=== PATIENT | female | born 1970 | race Caucasian/White ===

== ENCOUNTER 2016-09-12 00:14 | Emergency (ER) | payer BC ==
--- NOTE | 2016-09-12 02:09 | ED MAR SUMMARY ---
..... Medication Administration Record [facility] [address] [place], [place] [id number] Patient: LESLIE WHALEN Visit ID: [id number] 45y, F Weight: 46.7 kg Height/Length: 68 in BMI: 15.7 ALLERGIES: Sulfa Antibiotics
--- NOTE | 2016-09-12 02:09 | ED DISCHARGE INSTRUCTIONS ---
Patient: LESLIE WHALEN General Instructions [facility] VisitID: [id number] [place] [address] 45y, F Registration Date/Time: 09/12/2016 Chronic substance abuse- alcohol with intoxication. INSTRUCTIONS Drink plenty of fluids. No alcohol until released. Seek medical help to quit drinking. (Please hold your detox medication - chlordiazepoxide - for at least 8 hours. You may call [facility] to obtain a detox bed - or any other detox center that you choose - please see the list of resources for chemical dependency). Warnings: Further evaluation is necessary in order to conduct further tests. It is very important to follow up with a physician. GENERAL WARNINGS: Return or contact your physician immediately if your condition worsens or changes unexpectedly, if not improving as expected, or if other problems arise. Your Current Medications: CONTINUE TAKING THE FOLLOWING MEDICATIONS: ChlordiazePOXIDE HCl Oral : Capsule 25 mg, 1 capsule, prn. Follow-up: Follow up with your doctor tomorrow. ADDITIONAL INFORMATION Alcohol Intoxication Alcohol intoxication occurs when you drink alcohol faster than your liver can remove it from your system. Alcohol intoxication affects your judgment and coordination. Very high blood alcohol levels can cause coma, very slow breathing and even . If you drink alcohol every day, this may gradually cause permanent damage to your liver, brain, heart, pancreas and other organs. Alcohol use during may cause permanent damage to the growing baby. Home Care: Do not drink any more alcohol. DO NOT DRIVE until all effects of the alcohol have worn off. Get lots of rest over the next few days. Drink plenty of water and other non-alcoholic liquids. Try to eat regular meals. If you have been drinking heavily on a daily basis, you may go through alcohol withdrawl. This is also called the shakes or DTs. The usual symptoms last 3 to 4 days and may include nervousness, shakiness, nausea, sweating or sleeplessness. During this time, it is best that you stay with family or friends who can help and support you. You can also admit yourself to a residential detox program. If your symptoms are severe, contact your doctor for medicines to help. Follow Up: If alcohol is causing a problem in your life, these and other organizations can help you: Alcoholics Anonymous offers support through a self-help fellowship. There are no dues or fees. See the Yellow Pages and call for time and place of meetings. www.aa.org [place] offers support to families of alcohol users. 746.511.3443 www.al-anojulio.org National [place] On Alcoholism And Drug Dependence 496-161-4045 www.ncadd.org There are also inpatient or residential alcohol detox programs. Check the Internet or phonebook Yellow Pages under Drug Abuse & Treatment Centers. Get Prompt Medical Attention if any of the following occur: there) You have been given the following additional information: Alcohol Intoxication (Electronically signed by Lang Singleton DO 09/12/2016 2:08)
--- NOTE | 2016-09-12 02:09 | ED CLINICAL REPORT ---
Clinical Report - Physicians/Mid Levels [facility] [address] [place] [address] 09/12/2016 0:22 Patient: LESLIE WHALEN Time Seen: 00:30. Arrived- By private vehicle. Historian- patient and sister. HISTORY OF PRESENT ILLNESS Chief Complaint: INTOXICATED. Wants to stop drinking. Unknown as to when symptoms started. Duration of substance abuse- years. Substances abused: The patient is under influence in ED. No fever, chills, nausea, vomiting or diarrhea. No abdominal pain, tremors, seizure, agitation or delusions. No hallucinations. Not confused or paranoid. Has not been depressed. The symptoms are described as moderate. No injuries noted. Similar symptoms previously: Recent medical care: The patient was seen recently in a clinic. Seen for similar symptoms. Treatment received: chlordiazepoxide. Diagnosis: alcoholism. REVIEW OF SYSTEMS The patient has not had weight loss. No sweats, headache, dizziness, weakness or chest pain. No palpitations, black stools, numbness, bloody stools or sore throat. No cough, difficulty breathing, difficulty with urination, skin abscess or joint pain. No difficulty walking. All systems otherwise negative, except as recorded above. PAST HISTORY History of alcoholism. History of oropharyngeal cancer. Surgeries: (Oral cancer removal). Medications: ChlordiazePOXIDE HCl Oral (Capsule 25 mg) 1 capsule, as needed. Allergies: Sulfa Antibiotics. SOCIAL HISTORY Regular alcohol use. Patient is a longstanding alcoholic. Under the influence in E.D. No drug use. Has social support. 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. ADDITIONAL NOTES The nursing notes have been reviewed. PHYSICAL EXAM Vital Signs: 09/12/2016 00:31 BP: 130/97. HR: 90. RR: 16. O2 saturation: 98%. Temp: 97.6 F. Pain level now: 0/10. Appearance: Alert. Oriented X3. No acute distress. The patient's speech is slurred and odor of alcohol is present. Head: Head atraumatic. Eyes: Pupils equal, round and reactive to light. ENT: Airway intact. (post surgical changes in oropharynx). Neck: Normal inspection. Neck supple. CVS: Normal heart rate and rhythm. Heart sounds normal. Pulses normal. Respiratory: No respiratory distress. Breath sounds normal. Abdomen: Soft and nontender. (Feeding tube in place). Back: Normal inspection. Skin: Skin warm and dry. Normal skin color. Normal skin turgor. Extremities: Extremities exhibit normal ROM. No lower extremity edema. Neuro: Alert. Oriented X 3. Cranial nerves normal (as tested). No motor deficit. No sensory deficit. LABS, X-RAYS, AND EKG Laboratory Tests: Breathalyzer / Blood Alcohol Level: 0.249 . Pulse Oximetry: 09/12/2016 00:31 O2 saturation: 98%. (FIO2 - room air). Interpretation: normal. PROGRESS AND PROCEDURES Course of Care: Called [facility] dickerson in patient beds. 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 She is currently refusing in patient treatment, so I have strongly encouraged her to follow up closely with her pcp who is providing her with benzos for detox 09/12/2016 01:20 BP: 117/72. HR: 81. RR: 16. O2 saturation: 100%. Pain level now: 0/10. Patient/family counseled. Disposition: Discharged. Condition: stable and improved. CLINICAL IMPRESSION Chronic substance abuse- alcohol with intoxication. INSTRUCTIONS Drink plenty of fluids. No alcohol until released. Seek medical help to quit drinking. (Please hold your detox medication - chlordiazepoxide - for at least 8 hours. You may call [facility] to obtain a detox bed - or any other detox center that you choose - please see the list of resources for chemical dependency). Warnings: Further evaluation is necessary in order to conduct further tests. It is very important to follow up with a physician. GENERAL WARNINGS: Return or contact your physician immediately if your condition worsens or changes unexpectedly, if not improving as expected, or if other problems arise. Your Current Medications: CONTINUE TAKING THE FOLLOWING MEDICATIONS: ChlordiazePOXIDE HCl Oral : Capsule 25 mg, 1 capsule, prn. Follow-up: Follow up with your doctor tomorrow. (Electronically signed by Lang Singleton DO 09/12/2016 2:08)
--- NOTE | 2016-09-12 02:09 | ED MED RECONCILIATION SUMMARY ---
Patient: LESLIE WHALEN Medication Reconciliation Report [facility] VisitID: [id number] [address] [place] [place] [address] 45y, F Registration Date/Time: 09/12/2016 Weight: 46.7 kg Height/Length: 68 in. BMI: 15.7 ALLERGIES: Sulfa Antibiotics The patient's Home Medications are listed below: CONTINUE TAKING THE FOLLOWING MEDICATIONS: ChlordiazePOXIDE HCl Oral (25 mg) 1 capsule The source(s) of the original Home Medication information: patient The following Medications were given to the patient in the Emergency Department: None. The following Medications were prescribed to the patient: None.
--- NOTE | 2016-09-12 02:09 | ED MED RECONCILIATION SUMMARY ---
Patient: LESLIE WHALEN Medication Reconciliation Report [facility] VisitID: [id number] [address] [place] [place] [address] 45y, F Registration Date/Time: 09/12/2016 Weight: 46.7 kg Height/Length: 68 in. BMI: 15.7 ALLERGIES: Sulfa Antibiotics The patient's Home Medications are listed below: CONTINUE TAKING THE FOLLOWING MEDICATIONS: ChlordiazePOXIDE HCl Oral (25 mg) 1 capsule The source(s) of the original Home Medication information: patient The following Medications were given to the patient in the Emergency Department: None. The following Medications were prescribed to the patient: None.
--- NOTE | 2016-09-12 02:09 | ED MAR SUMMARY ---
..... Medication Administration Record [facility] [address], [place] [id number] Patient: LESLIE WHALEN Visit ID: [id number] 45y, F Weight: 46.7 kg Height/Length: 68 in BMI: 15.7 ALLERGIES: Sulfa Antibiotics
--- NOTE | 2016-09-12 02:09 | ED DISCHARGE INSTRUCTIONS ---
Patient: LESLIE WHALEN General Instructions [facility] VisitID: [id number] [address] [place] [address] 45y, F Registration Date/Time: 09/12/2016 Chronic substance abuse- alcohol with intoxication. INSTRUCTIONS Drink plenty of fluids. No alcohol until released. Seek medical help to quit drinking. (Please hold your detox medication - chlordiazepoxide - for at least 8 hours. You may call [facility] to obtain a detox bed - or any other detox center that you choose - please see the list of resources for chemical dependency). Warnings: Further evaluation is necessary in order to conduct further tests. It is very important to follow up with a physician. GENERAL WARNINGS: Return or contact your physician immediately if your condition worsens or changes unexpectedly, if not improving as expected, or if other problems arise. Your Current Medications: CONTINUE TAKING THE FOLLOWING MEDICATIONS: ChlordiazePOXIDE HCl Oral : Capsule 25 mg, 1 capsule, prn. Follow-up: Follow up with your doctor tomorrow. ADDITIONAL INFORMATION Alcohol Intoxication Alcohol intoxication occurs when you drink alcohol faster than your liver can remove it from your system. Alcohol intoxication affects your judgment and coordination. Very high blood alcohol levels can cause coma, very slow breathing and even . If you drink alcohol every day, this may gradually cause permanent damage to your liver, brain, heart, pancreas and other organs. Alcohol use during may cause permanent damage to the growing baby. Home Care: Do not drink any more alcohol. DO NOT DRIVE until all effects of the alcohol have worn off. Get lots of rest over the next few days. Drink plenty of water and other non-alcoholic liquids. Try to eat regular meals. If you have been drinking heavily on a daily basis, you may go through alcohol withdrawl. This is also called the shakes or DTs. The usual symptoms last 3 to 4 days and may include nervousness, shakiness, nausea, sweating or sleeplessness. During this time, it is best that you stay with family or friends who can help and support you. You can also admit yourself to a residential detox program. If your symptoms are severe, contact your doctor for medicines to help. Follow Up: If alcohol is causing a problem in your life, these and other organizations can help you: Alcoholics Anonymous offers support through a self-help fellowship. There are no dues or fees. See the Yellow Pages and call for time and place of meetings. www.aa.org [place] offers support to families of alcohol users. [phone] www.al-anojulio.org National [place] On Alcoholism And Drug Dependence 119-379-8645 www.ncadd.org There are also inpatient or residential alcohol detox programs. Check the Internet or phonebook Yellow Pages under Drug Abuse & Treatment Centers. Get Prompt Medical Attention if any of the following occur: there) You have been given the following additional information: Alcohol Intoxication (Electronically signed by Lang Singleton DO 09/12/2016 2:08)
--- NOTE | 2016-09-12 02:09 | ED CLINICAL REPORT ---
Clinical Report - Physicians/Mid Levels [facility] [address] [place] [address] 09/12/2016 0:22 Patient: LESLIE WHALEN Time Seen: 00:30. Arrived- By private vehicle. Historian- patient and sister. HISTORY OF PRESENT ILLNESS Chief Complaint: INTOXICATED. Wants to stop drinking. Unknown as to when symptoms started. Duration of substance abuse- years. Substances abused: The patient is under influence in ED. No fever, chills, nausea, vomiting or diarrhea. No abdominal pain, tremors, seizure, agitation or delusions. No hallucinations. Not confused or paranoid. Has not been depressed. The symptoms are described as moderate. No injuries noted. Similar symptoms previously: Recent medical care: The patient was seen recently in a clinic. Seen for similar symptoms. Treatment received: chlordiazepoxide. Diagnosis: alcoholism. REVIEW OF SYSTEMS The patient has not had weight loss. No sweats, headache, dizziness, weakness or chest pain. No palpitations, black stools, numbness, bloody stools or sore throat. No cough, difficulty breathing, difficulty with urination, skin abscess or joint pain. No difficulty walking. All systems otherwise negative, except as recorded above. PAST HISTORY History of alcoholism. History of oropharyngeal cancer. Surgeries: (Oral cancer removal). Medications: ChlordiazePOXIDE HCl Oral (Capsule 25 mg) 1 capsule, as needed. Allergies: Sulfa Antibiotics. SOCIAL HISTORY Regular alcohol use. Patient is a longstanding alcoholic. Under the influence in E.D. No drug use. Has social support. 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 ADDITIONAL NOTES The nursing notes have been reviewed. PHYSICAL EXAM Vital Signs: 09/12/2016 00:31 BP: 130/97. HR: 90. RR: 16. O2 saturation: 98%. Temp: 97.6 F. Pain level now: 0/10. Appearance: Alert. Oriented X3. No acute distress. The patient's speech is slurred and odor of alcohol is present. Head: Head atraumatic. Eyes: Pupils equal, round and reactive to light. ENT: Airway intact. (post surgical changes in oropharynx). Neck: Normal inspection. Neck supple. CVS: Normal heart rate and rhythm. Heart sounds normal. Pulses normal. Respiratory: No respiratory distress. Breath sounds normal. Abdomen: Soft and nontender. (Feeding tube in place). Back: Normal inspection. Skin: Skin warm and dry. Normal skin color. Normal skin turgor. Extremities: Extremities exhibit normal ROM. No lower extremity edema. Neuro: Alert. Oriented X 3. Cranial nerves normal (as tested). No motor deficit. No sensory deficit. LABS, X-RAYS, AND EKG Laboratory Tests: Breathalyzer / Blood Alcohol Level: 0.249 . Pulse Oximetry: 09/12/2016 00:31 O2 saturation: 98%. (FIO2 - room air). Interpretation: normal. PROGRESS AND PROCEDURES Course of Care: Called [facility] in patient beds. 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 She is currently refusing in patient treatment, so I have strongly encouraged her to follow up closely with her pcp who is providing her with benzos for detox 09/12/2016 01:20 BP: 117/72. HR: 81. RR: 16. O2 saturation: 100%. Pain level now: 0/10. Patient/family counseled. Disposition: Discharged. Condition: stable and improved. CLINICAL IMPRESSION Chronic substance abuse- alcohol with intoxication. INSTRUCTIONS Drink plenty of fluids. No alcohol until released. Seek medical help to quit drinking. (Please hold your detox medication - chlordiazepoxide - for at least 8 hours. You may call [facility] to obtain a detox bed - or any other detox center that you choose - please see the list of resources for chemical dependency). Warnings: Further evaluation is necessary in order to conduct further tests. It is very important to follow up with a physician. GENERAL WARNINGS: Return or contact your physician immediately if your condition worsens or changes unexpectedly, if not improving as expected, or if other problems arise. Your Current Medications: CONTINUE TAKING THE FOLLOWING MEDICATIONS: ChlordiazePOXIDE HCl Oral : Capsule 25 mg, 1 capsule, prn. Follow-up: Follow up with your doctor tomorrow. (Electronically signed by Lang Singleton DO 09/12/2016 2:08)
--- NOTE | 2016-09-12 02:09 | ED NURSING NOTES ---
Clinical Report - Nurses [facility] [address] [address] 09/12/2016 0:22 [id number] Triage time 00:31. Acuity: LEVEL 4. Chief Complaint: SUBSTANCE ABUSE. --00:50 Rafi Gautam R.N. 00:31 09/12/16. BP: 130/97. HR: 90. RR: 16. O2 saturation: 98%. Temp: 97.6 F. Pain level now: 0/10. --00:50 Rafi Gautam R.N. Weight: 46.7 kg. Height/Length: 68 inches. BMI: 15.7. --00:51 Rafi Gautam R.N. Medications ChlordiazePOXIDE HCl Oral (Capsule 25 mg) 1 capsule, as needed. --00:35 Rafi Gautam R.N. Medication/allergy information source: the patient. --00:50 Rafi Gautam R.N. Allergies Sulfa Antibiotics. --00:48 Rafi Gautam R.N. History Arrived by private vehicle. Historian: sister, patient and family. Accompanied by family and sister. ( Patient came to ER requesting detox for alcohol, has been taking Chlordiazepoxide PRN as prescribed by her doctor. patient came in with her sister.). Treatment SEAM STAYER: Recently seen in a medical facility; treatment- other medication. SOCIAL HX: Alcohol use. Patient is a longstanding alcoholic. Patient smells of ETOH in the emergency department (4 hours ago). --00:50 Rafi Gautam R.N. PROBLEMS: Cancer. Alcoholism. --00:47 Rafi Gautam R.N. Interventions ID band on patient. To room. --00:50 Rafi Gautam R.N. PHYSICAL ASSESSMENT Ambulatory to room. GENERAL / NEURO / PSYCH: Alert. Oriented X 4. Appears in no acute distress. HEENT: Pupils equal, round and reactive to light. No facial asymmetry noted. Mucous membranes are pink. RESPIRATORY: Respirations not labored. Chest nontender. Breath sounds within normal limits. CVS: Capillary refill less than 2 seconds. Pulses within normal limits. GI / : Abdomen soft and normal bowel sounds. SKIN: Skin intact. Skin is warm and dry. Normal skin turgor. --00:51 Rafi Gautam R.N. NURSING PROGRESS NOTES Reassurance given. Patient identifiers checked. Call light placed in reach. Side rails up x 1. Bed placed in lowest position. Brakes of bed on. Patient placed in chair. Patient ready for evaluation- chart flagged and ED physician notified. --00:52 Rafi Gautam R.N. ( BREATHALONZER .249 @0045). --01:01 Lizzie Landon. DISPOSITION / DISCHARGE Condition at departure: unchanged and stable. No learning barriers present. Discharge instructions provided and reviewed with the patient and family (sister). Reviewed medication(s) side effects, precautions, dosing and course information. Reviewed referral to a primary care physician for followup. Activity restrictions reviewed. Patient and family verbalized understanding. Written instructions provided in Vietnamese. Verbalized understanding (sister). The patient was discharged home and accompanied by family and sister. She left the Emergency Department ambulatory and via private vehicle. Family member driving (sister). --01:23 Rafi Gautam R.N. 01:20 09/12/16. BP: 117/72. HR: 81. RR: 16. O2 saturation: 100%. Temp: deferred. Pain level now: 0/10. --:23 Rafi Gautam R.N. Departure time: :23. --01:23 Rafi Gautam R.N. Locked/Released at 09/12/2016 1:23 by Rafi Gautam R.N.
--- NOTE | 2016-09-12 02:09 | ED NURSING NOTES ---
Clinical Report - Nurses [facility] [place] [address] 09/12/2016 0:22 [id number] Triage time 00:31. Acuity: LEVEL 4. Chief Complaint: SUBSTANCE ABUSE. --00:50 Rafi Gautam R.N. 00:31 09/12/16. BP: 130/97. HR: 90. RR: 16. O2 saturation: 98%. Temp: 97.6 F. Pain level now: 0/10. --00:50 Rafi Gautam R.N. Weight: 46.7 kg. Height/Length: 68 inches. BMI: 15.7. --00:51 Rafi Gautam R.N. Medications ChlordiazePOXIDE HCl Oral (Capsule 25 mg) 1 capsule, as needed. --00:35 Rafi Gautam R.N. Medication/allergy information source: the patient. --00:50 Rafi Gautam R.N. Allergies Sulfa Antibiotics. --00:48 Rafi Gautam R.N. History Arrived by private vehicle. Historian: sister, patient and family. Accompanied by family and sister. ( Patient came to ER requesting detox for alcohol, has been taking Chlordiazepoxide PRN as prescribed by her doctor. patient came in with her sister.). Treatment [place]: Recently seen in a medical facility; treatment- other medication. SOCIAL HX: Alcohol use. Patient is a longstanding alcoholic. Patient smells of ETOH in the emergency department (4 hours ago). --00:50 Rafi Gautam R.N. PROBLEMS: Cancer. Alcoholism. --00:47 Rafi Gautam R.N. Interventions ID band on patient. To room. --00:50 Rafi Gautam R.N. PHYSICAL ASSESSMENT Ambulatory to room. GENERAL / NEURO / PSYCH: Alert. Oriented X 4. Appears in no acute distress. HEENT: Pupils equal, round and reactive to light. No facial asymmetry noted. Mucous membranes are pink. RESPIRATORY: Respirations not labored. Chest nontender. Breath sounds within normal limits. CVS: Capillary refill less than 2 seconds. Pulses within normal limits. GI / : Abdomen soft and normal bowel sounds. SKIN: Skin intact. Skin is warm and dry. Normal skin turgor. --00:51 Rafi Gautam R.N. NURSING PROGRESS NOTES Reassurance given. Patient identifiers checked. Call light placed in reach. Side rails up x 1. Bed placed in lowest position. Brakes of bed on. Patient placed in chair. Patient ready for evaluation- chart flagged and ED physician notified. --00:52 Rafi Gautam R.N. ( BREATHALONZER .249 @0045). --01:01 Lizzie Landon. DISPOSITION / DISCHARGE Condition at departure: unchanged and stable. No learning barriers present. Discharge instructions provided and reviewed with the patient and family (sister). Reviewed medication(s) side effects, precautions, dosing and course information. Reviewed referral to a primary care physician for followup. Activity restrictions reviewed. Patient and family verbalized understanding. Written instructions provided in Hebrew. Verbalized understanding (sister). The patient was discharged home and accompanied by family and sister. She left the Emergency Department ambulatory and via private vehicle. Family member driving (sister). --01:23 Rafi Gautam R.N. 01:20 09/12/16. BP: 117/72. HR: 81. RR: 16. O2 saturation: 100%. Temp: deferred. Pain level now: 0/10. --:23 Rafi Gautam R.N. Departure time: :23. --01:23 Rafi Gautam R.N. Locked/Released at 09/12/2016 1:23 by Rafi Gautam R.N.
== END 2016-09-12 01:20 | disposition home or self-care (01) ==
LOC: ED SRH 00:14
DX: F10.129 Alcohol abuse with intoxication, unspecified (principal); Z88.2 Allergy status to sulfonamides